=== PATIENT | female | born 1980 | race Hispanic/Latino ===

== ENCOUNTER 2017-04-11 09:09 | Emergency (ER) | payer OTHER ==
[~2017-04-11] VITALS: Ht 165.1 cm; Wt 79.4 kg
[~2017-04-11 09:09] MED LIST: AMITRIPTYLINE H10 M2; LORAZEPAM0.5 M1 PO; NYSTATIN100000 UNI PO
[2017-04-11 09:13] VITALS: BP 131/84
[2017-04-11] MEDS ORDERED: METOPROLOL SUCC50 M2 PO (09:42)
--- NOTE | 2017-04-11 10:00 | ED GENERAL ADULT ---
History of Present Illness General Chief Complaint: Allergy Symptoms Stated Complaint: LIP SWELLING Source: patient Exam Limitations: no limitations Vital Signs & Intake/Output Vital Signs & Intake/Output Vital Signs Date Time Temp Pulse Resp B/P B/P Pulse O2 O2 Flow FiO2 Mean Ox Delivery Rate 04/11 0913 97.7 101 16 131/84 99 Room Air Allergies Coded Allergies: fluconazole (From DIFLUCAN) (LIP SWELLING 04/11/17) Reconcile Medications Amitriptyline HCl (Unknown Strength) TABLET (Unknown Dose) UNKNOWN (Reported) Lorazepam 0.5 MG TABLET 1 TAB PO PRN STIFFNESS IN SPINE (Reported) Metoprolol Succinate 50 MG TAB.ER.24H 1 TAB PO DAILY HEART (Reported) Triage Note: PT STATES HER LIPS BEGAN TO SWELL YESTERDAY STATES THAT SHE TOOK DIFLUCAN YESTERDAY AND SHE THINKS IT MAY BE FROM THAT, PT STATES SHE TOOK THAT MED BEFORE AND SHE DID HAVE SMALL AMOUNT OF SWELLING TO LIPS BUT THIS TIME IT IS VERY BAD. PT DENIES THROAT SWELLING TALKING IN FULL SENTENCES. Triage Nurses Notes Reviewed? yes : No Patient currently breastfeeds: No HPI: 36-year-old female with a history of anxiety presenting with lip swelling since yesterday. Reports taking Diflucan for yeast infection and then developing lip swelling about 30 minutes after. Has had 2 similar prior episodes after taking Diflucan. In the past episodes have self resolved without any treatment. Patient denies throat pain, dysphagia, odynophagia, tongue swelling or tingling, chest pain, shortness of breath, abdominal pain, nausea, vomiting. Past History Travel History Traveled to [place] past 21 day No Medical History Any Pertinent Medical History? 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 No Review of Systems Review of Systems Constitutional: Reports: no symptoms. EENTM: Reports: see HPI. Denies: throat pain, throat swelling, mouth pain. Respiratory: Reports: no symptoms. Cardiovascular: Reports: no symptoms. GI: Reports: no symptoms. Genitourinary: Reports: no symptoms. Musculoskeletal: Reports: no symptoms. Skin: Reports: no symptoms. Neurological/Psychological: Reports: no symptoms. Physical Exam Physical Exam General Appearance: well developed/nourished, no apparent distress Head: atraumatic Ears, Nose, Throat: normal ENT inspection, on exam there is both upper and lower lip swelling, no signs of tongue swelling or oropharyngeal edema, patient is in no acute distress, speaking in full sentences Respiratory: normal breath sounds, chest non-tender, lungs clear Cardiovascular: regular rate/rhythm, normal peripheral pulses Gastrointestinal: normal bowel sounds, soft, non-tender Core Measures ACS in differential dx? No CVA/TIA Diagnosis: No Severe Sepsis Present: No Septic Shock Present: No Progress Differential Diagnoses I considered the following diagnoses in my evaluation of the patient: [Allergic reaction versus angioedema versus anaphylaxis] Plan of Care: On exam there are no signs concerning for angioedema or anaphylaxis. Swelling is isolated to solely to lips, no tongue or oropharyngeal swelling. Patient given Benadryl and Pepcid, steroids deferred due to her recurrent yeast infections. Will continue Benadryl around the clock for the next 24 hours. Patient instructed to follow up with her primary care provider in the next 24 hours for reevaluation. Initial ED EKG: none Departure Departure Disposition: HOME OR SELF CARE Condition: Stable Clinical Impression Primary Impression: Lip swelling Referrals: FARZANA ORNELAS,MELLISSA Vega (PCP/Family) Additional Instructions: Use 25 mg of benadryl every 6 hours for the next 24 hours. Follow up with your primary care provider for reevaluation. Return to the ED for any normal worsening symptoms. Departure Forms: Customer Survey General Discharge Information Critical Care Note Critical Care Note Critical Care Time: non-applicable
== END 2017-04-11 10:23 ==
LOC: ERH 09:09
DX: R22.0 Localized swelling, mass and lump, head (principal)